=== PATIENT | female | born 1945 | race Caucasian/White ===

== ENCOUNTER 2016-09-09 10:04 | Day surgery (SDC) | payer MEDICARE, OTHER ==
[~2016-09-09 10:04] MED LIST: ASPI81 PO; GLUCTAB PO; LORT5TAB PO; Z.0.UNKNOWN
[2016-09-09] MEDS ORDERED: POVIDONE IODINE 5% (ANTISEPSIS KIT) 4 APPLICATIONS EACH NARE SCH (10:30)
[2016-09-09] MEDS ORDERED: CHLORHEXIDINE GLUCONATE 2 % 1 PACK (2 CLOTHS) TOPICAL SCH (10:30)
[2016-09-09] MEDS ORDERED: ceFAZolin 2 GM PREMIX 50 ML IV SCH (10:30)
[2016-09-09] MEDS ORDERED: VANCOMYCIN 1000 MG/NS 250 ML IV SCH ×2 (10:45)
[2016-09-09] MEDS ORDERED: METF500T PO (10:49)
[2016-09-09] MEDS ORDERED: PRIL20CA9 PO (10:49)
[2016-09-09] MEDS ORDERED: CRANCAP2 PO (10:49)
[2016-09-09] MEDS ORDERED: PRED5TAB PO (10:49)
[2016-09-09] MEDS ORDERED: BIOT1CHW PO (10:49)
[2016-09-09] MEDS ORDERED: ASPI1TAB69 PO (10:49)
[2016-09-09] MEDS ORDERED: CALC1TAB12 PO (10:49)
[2016-09-09] MEDS ORDERED: CARV6.252 PO (10:49)
[2016-09-09] MEDS ORDERED: SIMV40TA PO (10:49)
[2016-09-09] MEDS ORDERED: IMIT50TA PO (10:49)
[2016-09-09] MEDS ORDERED: PARO20TA2 PO (10:49)
[2016-09-09] MEDS ORDERED: ESTE500T4 PO (10:49)
[2016-09-09] MEDS ORDERED: LEVO25TA4 PO (10:49)
[2016-09-09] MEDS ORDERED: MUPIROCIN 2% OINT 1 APPLIC/GM SYR NASAL SCH (11:00)
[2016-09-09] MEDS ORDERED: MIDAZOLAM HCL 5 MG/5 ML VIAL ONE (12:13)
--- NOTE | 2016-09-09 12:51 | MA ---
cc: BRIDGETTE GARY MD, BETH A. MD DATE 09/09/2016 PROCEDURE PERFORMED Loop recorder insertion PREPROCEDURE DIAGNOSIS Syncope POSTPROCEDURE DIAGNOSIS Successful loop recorder insertion. PROCEDURES PERFORMED 1. 15 minutes moderate sedation. 2. Loop recorder insertion. DESCRIPTION OF PROCEDURE The patient was brought to the DOC unit in the postabsorptive state. After informed consent was obtained, 4 mg of Versed and 15 mcg of fentanyl were given for IV moderate sedation. Next, a Rysto LINQ loop recorder was inserted subcutaneously first initially under the left breast, but this position was revised to between the breasts due to a better R-wave. The patient tolerated the procedure well without any apparent complications. The initial R-wave in the final position was 0.28 mV. Tachybrady pause in atrial fibrillation detection was enabled. The serial number was [id number]. MD LATASHA Hassan/RUDDY /12:41 PM /12:47 PM
== END 2016-09-09 15:45 | disposition home or self-care (01) ==
LOC: HDOC 10:04 → HDIC 10:05 → HDOC 15:45
PROVIDERS: ATTEND Nuclear Medicine Nuclear Cardiology
DX: R55 Syncope and collapse (principal)
CPT/HCPCS: 33282; C1764; J2250; J3010; J3370; J7050

== ENCOUNTER 2016-12-05 06:18 | Day surgery (SDC) | payer MEDICARE, OTHER ==
[~2016-12-05] VITALS: Ht 154.9 cm; Wt 91.0 kg
[~2016-12-05 06:18] MED LIST changes: +ASPI1TAB69 PO; -ASPI81 PO; +BIOT1CHW PO; +CALC1TAB12 PO; +CARV6.252 PO; +CRANCAP2 PO; +ESTE500T4 PO; -GLUCTAB PO; +IMIT50TA PO; +LEVO25TA4 PO; -LORT5TAB PO; +METF500T PO; +PARO20TA2 PO; +PRED5TAB PO; +PRIL20CA9 PO; +SIMV40TA PO; -Z.0.UNKNOWN
[2016-12-05 06:52] VITALS: BP 165/111; PULSE 58; RESP 16; TEMP 97.9; O2SAT 94
[2016-12-05] MEDS ORDERED: NS 1000P @30 MLS/HR (KVO) IV SCH (07:00)
[2016-12-05] MEDS ORDERED: PRIL20TA2 PO (07:03)
[2016-12-05] MEDS ORDERED: ASPI81TA11 PO (07:03)
[2016-12-05 07:10] LABS: AUTOMATED NEUTROPHIL # 5.7 TH/MM3 (1.8-7.7); BASOPHIL % 0.2 % (0.0-2.0); EOSINOPHIL # 0.2 TH/MM3 (0-0.4); EOSINOPHIL % 2.1 % (0.0-4.0); HEMATOCRIT 41.6 % (35.0-46.0); HEMO FLAGS DIFF FINAL; LYMPH % 31.7 % (9.0-44.0); LYMPHOCYTE # 3.2 TH/MM3 (1.0-4.8); MEAN CELL VOLUME 89.6 FL (80.0-100.0); MEAN CORPUSCULAR HEMOGLOBIN 30.1 PG (27.0-34.0); MEAN CORPUSCULAR HGB CONC 33.6 % (32.0-36.0); PLATELET COUNT 265 TH/MM3 (150-450); RED BLOOD COUNT 4.64 MIL/MM3 (4.00-5.30); RED CELL DISTRIBUTION WIDTH 13.9 % (11.6-17.2); WHITE BLOOD COUNT 10.1 TH/MM3 (4.0-11.0)
[2016-12-05 07:26] LABS: POTASSIUM 4.4 MEQ/L (3.5-5.1)
[2016-12-05 08:01] LABS: INTERNATIONAL NORMALIZED RATIO 0.9 RATIO
[2016-12-05 08:08] LABS: PROTHROMBIN TIME - PATIENT 10.2 SEC (9.8-11.6)
[2016-12-05] MEDS ORDERED: HEPARIN-NS/PF INJ 500 ML ONE ×2 (09:11→10:10)
[2016-12-05] MEDS ORDERED: VERAPAMIL HCL 5 MG/2 ML VIAL ONE (09:12)
[2016-12-05] MEDS ORDERED: HEPARIN SODIUM - IV 10,000 UNITS/10 ML VIAL ONE (09:12)
[2016-12-05] MEDS ORDERED: NITROGLYCERIN INJ 5 ML ONE (09:12)
[2016-12-05] MEDS ORDERED: MIDAZOLAM HCL 2 MG/2 ML VIAL ONE (09:13)
[2016-12-05] MEDS ORDERED: ADENOSINE STRESS TEST INJ 90 MG/30 ML VIAL ONE (10:16)
--- NOTE | 2016-12-05 10:52 | CATHPROC ---
[employer] HIS Report Study Information Study Number Admission Scheduled Start Study Start [id number] Dec 05 2016 6:18AM 12/05/2016 Dec 05 2016 9:06AM Study Type [place] Service Left/Possible PCI Cardiac Catheterization Admit Source Facility Department Other [facility] - Technical Sales Director Physician and Clinical Staff Initial Andry Bhagat Clinical Phlebotomist Teresa Raines,FATUMA Other cathlab, cathlab Recorder Aden Perez RCIS(BS) Scrub Janice Meier,APPLICATION INFRASTRUCTURE ENGINEER TECH2 Procedures Performed Procedure Location (Site) Vessel Name Coronary Angiograms LCA Left Coronary Coronary Angiograms RCA Right Coronary Coronary Angiograms Radial (right) Radial Art. L Heart Cath Wire insertion Fem Art (right) Femoral Art Equipment Time Hand Shoes Sewer Description Size Mfg Part Number Used/Scraped TRANSDUCER, TREDDIE [id number] 09:08 MENDEZ PATEL * Used W/MARTÍN *[id number]-502-10.0- INTRODUCER SET, 09:46 [employer] FR 5 SC-NT-U-SST Used MICROPUNCTURE, STIFFENED *[id number] 534-576T *[id number] 534-518T *[id number] 534-520T *[id number] 534-521T *[id number] WIRE, HYDROSTEER 260CM [id number] 09:46 [employer]IG[employer] 260CM Used ANGLED GLIDE *[id number] 09:08 [employer] PACK, CCL CUSTOM * Used *[id number] 09:08 [employer] SUPPORT, ARTERIAL ADULT [id number] Used [id number] 10:18 [employer]/AVE EBU 3.5 Z2 GUIDE CATHETER FR 6 Used *[id number] BAND, RADIAL COMPRESSION TR [id number] 10:36 [employer] MEDICAL 24CM Used SHORT 24 *[id number] 10:21 [employer] PACK, ANGIOPLASTY * [id number] Used [id number] 10:17 [employer] MEDICAL SHEATH, FR6.5 PRELUDE 11CM FR 6.5 038ACT Used *[id number] 09:08 [employer] WIRE, EXCHANGE 260CM 3MMJ 260CM Used *[id number] 09:08 NAMIC MANIFOLD, 4 PORT * Used *[id number] 09:08 [employer] OMNIPAQUE, 350 MG, 150ML 150ML [id number] Used [id number] 09:08 [facility] BLANKET,WARM AIR CCL * Used *[id number] 09:46 [employer] MED[employer] SHEATH, FR5 TERUMO (10CM) FR 5 Used *[id number] SHEATH, FR6 TRANSRADIAL RM*[id number] 09:08 [employer] MEDICAL FR 6 Used SLENDER 10CM *[id number] 10:22 [employer] PRIME WIRE, VERRATA 185CM 185CM [id number] *[id number] Used Equipment Model, Serial, Lot Number and Expiration Data Description Model Number Serial Number Lot Number Expiration Date INTRODUCER SET, [id number] 10-26-2019 MICROPUNCTURE, STIFFENED History: Current Medications Medication Dosage/Unit Route Frequency Last Date/Time Taken ASA Beta Sophy History: Allergies Allergy Reaction Codeine NAUSE Penicillin History: Risk Factors Family History of Dyslipidemia Previous ID Previous Heart Failure Premature CAD Yes Yes No No Prior Valve Prior PCI Prior CABG Surgery No No No Cerebrovascular Peripheral Artery Chronic Lung On Dialysis Diabetes Diabetes Therapy Disease Disease Disease No No No No Yes Oral History: Stress Tests Stress or Imaging Studies Performed Yes Standard Exercise Stress Test No Stress Echo No Stress Test SPECT Stress Test SPECT Result Yes Negative Stress Test CMR No Cardiac CTA Coronary Calcium Score No No History: Other Disease Selection Items HTN History: Other Current Smoker No Labs Hgb (g/dl) Hct (%) WBC (l/cumm) Platelets (thousands) 11.60-17.00 35.00-51.00 4.00-11.00 150.00-450.00 14.0 41 4.6 265 Glucose (mg/dl) BUN (mg/dl) Creatinine (mg/dl) BUN:Creatinine (1:x) 74.00-106.00 7.00-18.00 0.50-1.30 10.00-20.00 222 17 0.8 21.3 Na (meq/l) K (meq/l) 136.00-145.00 3.50-5.10 140 4.4 INR (PTT:PT) 0.90-1.10 0.9 CPK-MB (ng/ML) 0.50-3.60 Not Drawn Medication Medication Total Dose (Bolus/Oral) Medication Total Dosage/Unit 1% XYLOCAINE 23 mL FENTANYL 25 mcg HEPARIN 5200 units RADIAL COCKTAIL 5 mL (Bolus) VERSED 0.5 mg Medications (Bolus/Oral) Medication Time Given Dosage/Unit Administered By Reason VERSED 12/05/2016 9:35:22 AM 0.5 mg Teresa Raines Patient arrived on 0.5 mg VERSED given by Teresa Raines, FATUMA in Left Antecubital via Peripheral IV. Ordered by Andry Umaña. FENTANYL 12/05/2016 9:37:02 AM 25 mcg Teresa Raines Patient arrived on 25 mcg FENTANYL given by Teresa Raines, FATUMA in Left Antecubital via Peripheral I V. Ordered by Andry Umaña. 1% XYLOCAINE 12/05/2016 9:38:32 AM 3 mL Andry Umaña 3 mL 1% XYLOCAINE given in lab by Andry Umaña in Right Radial via Subcutaneous. Ntg 200mcg Verapamil 2.5mg Heparin RADIAL COCKTAIL 12/05/2016 9:41:49 AM 5 mL (Bolus) Andry Umaña 2500U 5 mL (Bolus) RADIAL COCKTAIL given in lab by Andry Umaña in Right Radial via Radial. Using [Shama ution Name]. Reason: Ntg 200mcg Verapamil 2.5mg Heparin 3500U. 1% XYLOCAINE 12/05/2016 9:46:28 AM 20 mL Andry Umaña 20 mL 1% XYLOCAINE given in lab by Andry Umaña in Right Groin via Subcutaneous. HEPARIN 12/05/2016 10:19:15 AM 5200 units Teresa Raines 5200 units HEPARIN given in lab by Teresa Raines, FATUMA in Left Antecubital via Peripheral IV. Ordere d by Andry Umaña. Medication (Drip) Medication Time Given Dosage/Unit Concentration/Unit Diluent (ml) Solutio n IV Solutions 12/05/2016 9:06:37 AM 0 mL (IV) 500 NaCl .9 Patient arrived on IV Solutions given by alcideslabelvis in Left Antecubital via Peripheral IV. Pump /Drip Flow = 20 ml/hr using NaCl .9. Initial Case Assessment Cardiovascular HR Rhythm NIBP Chest Pain 69 sinus 209/174 0 Edema Present Skin color Skin None Normal Warm Dry Circulatory - Right Pulses Dorsalis Pedis Femoral Radial 1 1 1 Scale (0,1,2,3,4,d) Circulatory - Left Pulses Dorsalis Pedis Femoral Radial 1 1 Scale (0,1,2,3,4,d) Neurological State Oriented to time-place- Alert Moves all extremities person Respiration - General Respiration Rate SpO2 (%) (B/min) 15 98 Final Case Assessment Cardiovascular HR Rhythm NIBP Chest Pain 74 sinus 143/79 0 Edema Present Skin color Skin None Normal Warm Dry Circulatory - Right Pulses Dorsalis Pedis Femoral Radial 1 1 1 Scale (0,1,2,3,4,d) Circulatory - Left Pulses Dorsalis Pedis Femoral Radial 1 1 Scale (0,1,2,3,4,d) Neurological State Oriented to time-place- Alert Moves all extremities person Respiration - General Respiration Rate SpO2 (%) (B/min) 15 98 Chronological Log Time Study Chronological Log 9:06:24 Patient arrived via Bed. 9:06:24 Patient Name, D.O.B, / Armband Verified By R.N. 9:06:25 Consent signed by the physician and the patient and verified by the Technical Sales Director staff. 9:06:26 Pre-op and post- op instructions given; patient acknowledges understanding of instructions. 9:06:26 Verbal Stimulation=2 Physical Stimulation=2 Airway=2 Respiration=2 TOTAL=8. (0=absent, 1=li mited, 2=present) 9:06:27 Presedation assessment performed by Technical Sales Director RN. 9:06:28 Allens test performed on the right radial and ulnar artery. POSITIVE. 9:06:32 Patient has been NPO for More than 6Hrs. 9:06:33 Skin Breakdown- none per patient 9:06:34 Patient Warmer Placed on the Table. 9:06:35 Qi Prominences Protected 9:06:36 A # 20 IV was noted in the Antecubital (left). Grade = 0 Patient arrived on IV Solutions given by cathlab, cathlab in Left Antecubital via Peripheral IV . Pump/Drip Flow = 20 9:06:37 ml/hr using NaCl .9. 9:06:38 History and physical on the chart or being dictated. Vitals capture started with the following parameters, Patient=Adult, Interval=5 min, Initial Pr dqtitz=809 mmHg, 9:10:17 Deflation Rate=5 mmHg 9:11:31 HR=74 bpm, ZUZX=799/174 mmhg, SpO2=96.0 %, Resp=16 B/min, Pain=0, Antonio=10, Resendiz=2 Assessment: Initial Case, HR=69 BPM, Rhythm=sinus, NJGB=541/174 mmhg, Chest Pain=0, Edema=None, Color=Normal, Skin = Warm, Dry Right Pulses: Rl Ped=1, Femoral=1, Radial=1 9:12:12 Left Pulses: Rl Ped=1, Femoral=1 Neurological: State=Alert, Ox3, SHOEMAKER Respiration: Resp=15 B/min, SpO2=98 % 9:16:02 HR=76 bpm, ITJK=143/100 mmhg, SpO2=98.0 %, Resp=15 B/min, Pain=0, Antonio=10, Resendiz=2 9:17:21 Right Radial and groin(s) prepped with 2% chlorhexidine, and with a 3 min. waiting time. 9:19:34 Reference ECG taken 9:20:55 HR=77 bpm, GCMM=237/104 mmhg, SpO2=98.0 %, Resp=12 B/min, Pain=0, Antonio=10, Resendiz=2 9:23:02 MD paged 9:24:02 MD responded 9:25:40 Pressure channel 1 zeroed. 9:25:54 HR=87 bpm, EBNF=502/91 mmhg, SpO2=97.0 %, Resp=13 B/min, Pain=0, Antonio=10, Ersendiz=2 9:30:57 HR=76 bpm, CCNC=436/109 mmhg, SpO2=98.0 %, Resp=11 B/min, Pain=0, Antonio=10, Resendiz=2 9:31:58 MD arrived. 9:32:04 Contrast Scanned 9:32:05 Immediate Presedation assesment performed by physician. Patient arrived on 0.5 mg VERSED given by Teresa Raines RN in Left Antecubital via Periphera l IV. Ordered by 9:35:22 Andry Umaña. 9:35:58 HR=90 bpm, OAYO=422/90 mmhg, SpO2=97.0 %, Resp=18 B/min, Pain=0, Antonio=10, Resendiz=2 Patient arrived on 25 mcg FENTANYL given by Teresa Raines RN in Left Antecubital via Periphe ral IV. Ordered by 9:37:02 Andry Umaña. Time Out. Correct patient, correct procedure,correct physician, ,power injector not loaded with contrast with surgical 9:38:16 team present. Time Out Concurred by , individual staff in procedure 9:38: Case Start 9:: Verbal Stimulation=2 Physical Stimulation=2 Airway=2 Respiration=2 TOTAL=8. (0=absent, 1=hayes ited, 2=present) 9:38:32 3 mL 1% XYLOCAINE given in lab by Andry Umaña in Right Radial via Subcutaneous. 9:41:01 HR=82 bpm, KXCF=539/81 mmhg, SpO2=95.0 %, Resp=15 B/min, Pain=0, Antonio=10, Resendiz=2 9:41:25 Access site was Right Radial Artery. A SHEATH, FR6 TRANSRADIAL SLENDER 10CM FR 6 was advanced into the Radial (right) using the Huu dalila 9:41:41 technique. 5 mL (Bolus) RADIAL COCKTAIL given in lab by Andry Umaña in Right Radial via Radial. Using [Solution Name]. 9:41:49 Reason: Ntg 200mcg Verapamil 2.5mg Heparin 3500U. A JR 4.0 INFINITI CATHETER FR 5 was advanced over a wire. OMNIPAQUE, 350 MG, 150ML 150ML was use d for 9:42:07 injections. 9:42:58 Wire removed 9:43:50 The Radial (right) was injected and visualized at various angles. OMNIPAQUE, 350 MG, 150ML 1 50ML used. 9:44:36 Catheter was removed 9:44:40 Unable to advance catheter via R. RADIAL ART. ATTEMPTING RFA. 9:46:04 HR=84 bpm, RVZM=466/44 mmhg, SpO2=90.0 %, Resp=13 B/min, Pain=0, Antonio=10, Resendiz=2 9:46:28 20 mL 1% XYLOCAINE given in lab by Andry Umaña in Right Groin via Subcutaneous. 9:49:51 Access site was Right Femoral Artery. A INTRODUCER SET, MICROPUNCTURE, STIFFENED FR 5 was advanced into the Fem Art (right) using the 9:49:56 Percutaneous technique. A SHEATH, FR5 TERUMO (10CM) FR 5 was exchanged in the Fem Art (right). This was necessary in ord er to 9:50:00 accomodate a larger catheter. 9:51:19 An injection in the Fem Art (right) was made through the SHEATH, FR5 TERUMO (10CM) FR 5. 9:51:24 HR=84 bpm, MUKV=936/98 mmhg, SpO2=95.0 %, Resp=13 B/min, Pain=0, Antonio=10, Resendiz=2 A JR 4.0 INFINITI CATHETER FR 5 was advanced over a wire. OMNIPAQUE, 350 MG, 150ML 150ML was us ed for 9:52:17 injections. Recorded Pressure: LV, HR=82, Condition=Condition 1 9:54:19 (Left Ventricle) LV 135/2/11 Recorded Pressure: LV, Ao, HR=80, Condition=Condition 1 9:54:37 (Left Ventricle) LV 133/-4/7, (Aorta) Ao 135/81/105 9:55:52 HR=80 bpm, XGYO=216/92 mmhg, SpO2=97 %, Resp=8 B/min, Pain=0, Antonio=10, Resendiz=2 10:00:57 HR=81 bpm, GNFB=891/91 mmhg, SpO2=97.0 %, Resp=8 B/min, Pain=0, Antonio=10, Resendiz=2 After removing the current catheter a 3DRC INFINITI CATHETER FR 5 was advanced over a WIRE, EXC HANGE 260CM 10:02:29 3MMJ 260CM. 10:04:27 The RCA was injected and visualized at various angles. OMNIPAQUE, 350 MG, 150ML 150ML used . 10:05:54 HR=77 bpm, BMXC=871/85 mmhg, SpO2=97.0 %, Resp=11 B/min, Pain=0, Antonio=10, Resendiz=2 After removing the current catheter a JL 3.5 INFINITI CATHETER FR 5 was advanced over a WIRE, E XCHANGE 260CM 10:06:06 3MMJ 260CM. After removing the current catheter a JL 4.0 INFINITI CATHETER FR 5 was advanced over a WIRE, E XCHANGE 260CM 10:07:39 3MMJ 260CM. 10:10:05 The LCA was injected and visualized at various angles. OMNIPAQUE, 350 MG, 150ML 150ML used . 10:10:55 HR=76 bpm, EWQL=203/90 mmhg, SpO2=98.0 %, Resp=12 B/min, Pain=0, Antonio=10, Resendiz=2 Recorded Pressure: Ao, HR=76, Condition=Condition 1 10:11:30 (Aorta) Ao 143/83/110 10:16:00 HR=76 bpm, MRZJ=171/62 mmhg, SpO2=96.0 %, Resp=12 B/min, Pain=0, Antonio=10, Resendiz=2 10:16:19 Catheter was removed A SHEATH, FR6.5 PRELUDE 11CM FR 6.5 was exchanged in the Fem Art (right). This was necessary in order to 10:18:02 accomodate a larger catheter. 5200 units HEPARIN given in lab by Teresa Raines RN in Left Antecubital via Peripheral IV. Ordered by Leeroy, 10:19:15 Andry. 10:20:53 HR=77 bpm, DTTK=789/92 mmhg, SpO2=98 %, Resp=14 B/min, Pain=0, Antonio=10, Resendiz=2 10:25:52 Pressure channel 1 zeroed. 10:25:54 HR=75 bpm, VKXY=897/90 mmhg, SpO2=98 %, Resp=13 B/min, Pain=0, Antonio=10, Resendiz=2 10:27:08 A PRIME WIRE, VERRATA 185CM 185CM was inserted via Fem Art (right). 10:28:47 Interventional wire has crossed the lesion 10:29:50 Flow Wire was was placed in the RAMUS. The FFR measures ~FFR~ percent. The IFR measures 98 Percent. 10:31:36 HR=73 bpm, LTSF=527/79 mmhg, SpO2=96.0 %, Resp=16 B/min, Pain=0, Antonio=10, Resendiz=2 10:31:56 The wire was removed. 10:32:05 The LCA was injected and visualized at various angles. OMNIPAQUE, 350 MG, 150ML 150ML used . 10:32:10 Catheter was removed 10:33:34 Activated Clotting Time Drawn Assessment: Final Case, HR=74 BPM, Rhythm=sinus, PWXI=605/79 mmhg, Chest Pain=0, Edema=None, Color=Normal, Skin = Warm, Dry Right Pulses: Rl Ped=1, Femoral=1, Radial=1 10:33:44 Left Pulses: Rl Ped=1, Femoral=1 Neurological: State=Alert, Ox3, SHOEMAKER Respiration: Resp=15 B/min, SpO2=98 % Radial Compression Device Used. 11 mLs of air placed in BAND, RADIAL COMPRESSION TR SHORT 24 24 CM. Affected 10:34:04 hand 96 % O2 saturation. 10:35:54 HR=71 bpm, MAAH=256/91 mmhg, SpO2=98.0 %, Resp=15 B/min, Pain=0, Antonio=10, Resendiz=2 10:37:19 Case End 10:37:20 In the Fem Art (right) the SHEATH, FR6.5 PRELUDE 11CM FR 6.[address] by Janice Meier, APPLICATION INFRASTRUCTURE ENGINEER TECH2. 10:37:31 Catheter(s) removed without difficulty 10:37:33 Sheath(s) left in place, will be removed in Holding Area 10:37:34 No case complications noted. 10:37:35 Cine recording checked. 10:37:37 Bedside Report will be given. 10:37:38 Contrast Scanned 10:37:40 Verbal Stimulation=2 Physical Stimulation=2 Airway=2 Respiration=2 TOTAL=8. (0=absent, 1=l imited, 2=present) 10:37:47 A Left Heart Cath was performed. 10:40:02 ACT (Normal Range 90-180) = 314 10:41:02 Sterile dressing applied to site 10:41:28 HR=72 bpm, YAEP=770/101 mmhg, SpO2=97 %, Resp=10 B/min, Pain=0, Antonio=10, Resendiz=2 10:45:14 Patient moved to stretcher 10:45:25 Vitals capture stopped. End Study - Contrast Media Used In Study Contrast Total Opened (mL) Total Used (mL) Total Wasted (mL) Omnipaque 60 60 0 End Study - Maximum Contrast Load Max Contrast Load (mL) 550.0 End Study - Radiation Exposure Fluoro Time (minutes) 13.2 End Study - Patient Disposition Complications Transferred To Interventional Outcome No Technical Sales Director Holding No attempt made
[2016-12-05] MEDS ORDERED: MISC INFORMATION XX ONE (11:00)
[2016-12-05] MEDS ORDERED: ONDANSETRON HCL 4 MG/2 ML VIAL IV PRN (11:00)
[2016-12-05] MEDS ORDERED: SODIUM CHLOR 0.9% 250 ML INJ 250 ML IV PRN (11:00)
[2016-12-05] MEDS ORDERED: ATROPINE SULFATE 1 MG/ML VIAL IV PRN (11:00)
[2016-12-05] MEDS ORDERED: SUMAtriptan SUCCINATE 50 MG TAB PO PRN (11:00)
[2016-12-05] MEDS ORDERED: METF500T PO (11:03)
--- NOTE | 2016-12-05 11:06 | HHI.DS ---
Discharge Summary Admission Date 12/05/16 Discharge Date: Dec 06, 2016 Admitting Diagnosis 1) NSVT (1) NSVT (nonsustained ventricular tachycardia) Diagnosis: Principal (2) CAD (coronary artery disease) Diagnosis: Principal Procedures [facility] (12/05/16) RCA with 30% disease. LCx with 20% disease. Ramus 50% (IFR 0.98) . LAD with mild disease until the distal portion which is overall small (1.5mm ) with diffuse disease. Medical management CBC/BMP: 12/05/16 0645 12/05/16 0645 Significant Findings Laboratory Tests Test 12/05/16 12/05/16 06:45 07:35 Monocytes (%) (Auto) 9.0 % (0.0-8.0) Estimat Glomerular Filtration 66 ML/MIN (>89) Rate Random Glucose 222 MG/DL (74-106) Activated Partial 23.0 SEC Thromboplast Time (24.3-30.1) Pt Condition on Discharge: Good Discharge Disposition: Discharge Home Discharge Instructions DIET: Follow Instructions for: Heart Healthy Diet Andry Umaña DO Dec 05, 2016 11:06
[2016-12-05] MEDS ORDERED: hydrALAZINE HCL 20 MG/ML VIAL IV PUSH PRN (11:15)
[2016-12-05] MEDS ORDERED: IOHEXOL 350 MG/ML 100 ML BTL (for Cath Lab) OTHER ONE (15:19)
[2016-12-05] MEDS ORDERED: oxyCODONE/ACETAMINOPHEN 5 MG/325 MG TAB PO ONE (16:00)
[2016-12-05] MEDS ORDERED: fentaNYL CITRATE 250 MCG/5 ML AMP IV PUSH ONE (18:00)
[2016-12-05 19:00] VITALS: BP 140/81; PULSE 79; PULSE 86; RESP 18; TEMP 98.3; O2SAT 95
[2016-12-05 20:00] VITALS: PULSE 84
[2016-12-05 21:00] VITALS: PULSE 86
[2016-12-05] MEDS ORDERED: PRAVASTATIN SOD 80 MG TAB PO SCH (21:00)
[2016-12-05] MEDS: CARVEDILOL 6.25 MG TAB PO SCH (21:24)
[2016-12-05 22:00] VITALS: PULSE 84
[2016-12-05 23:00] VITALS: BP 134/86; PULSE 82; PULSE 84; RESP 20; TEMP 98.4; O2SAT 93
[2016-12-06] VITALS (12 sets, daily range): BP systolic 121–136; BP diastolic 86–99; PULSE 76–90; RESP 16–20; TEMP 98.4–98.6; O2SAT 93–94
[2016-12-06] MEDS ORDERED: LEVOTHYROXINE SODIUM 50 MCG TAB PO SCH (06:00)
[2016-12-06 06:57] LABS: AUTOMATED NEUTROPHIL # 3.6 TH/MM3 (1.8-7.7); BASOPHIL # 0.1 TH/MM3 (0-0.2); BASOPHIL % 1.5 % (0.0-2.0); EOSINOPHIL # 0.3 TH/MM3 (0-0.4); EOSINOPHIL % 3.5 % (0.0-4.0); HEMATOCRIT 39.5 % (35.0-46.0); HEMO FLAGS DIFF FINAL; LYMPH % 35.3 % (9.0-44.0); LYMPHOCYTE # 2.6 TH/MM3 (1.0-4.8); MEAN CORPUSCULAR HEMOGLOBIN 30.3 PG (27.0-34.0); MEAN CORPUSCULAR HGB CONC 34.1 % (32.0-36.0); MONO % 9.9 % (0.0-8.0); NEUT % 49.8 % (16.0-70.0); PLATELET COUNT 244 TH/MM3 (150-450); RED BLOOD COUNT 4.44 MIL/MM3 (4.00-5.30); RED CELL DISTRIBUTION WIDTH 13.7 % (11.6-17.2); WHITE BLOOD COUNT 7.3 TH/MM3 (4.0-11.0)
[2016-12-06 07:26] LABS: BICARBONATE 25.9 MEQ/L (21.0-32.0)
--- NOTE | 2016-12-06 08:36 | MA ---
cc: ANDRY SPIVEY DO DATE: 12/05/2016 PROCEDURE Left heart catheterization, coronary angiogram, IFR ramus, moderate sedation 60 minutes. PREPROCEDURE DIAGNOSIS Symptomatic nonsustained ventricular tachycardia. POSTPROCEDURE DIAGNOSIS Symptomatic nonsustained ventricular tachycardia, coronary artery disease. MEDICATIONS Versed 1 mg, Fentanyl 50 mcg, nitro 200 mcg, verapamil 2.5 mg, heparin 7700 units. CONTRAST USED 60 cc. FLUOROSCOPY TIME 13.2 minutes. SEDATION Moderate sedation, 60 minutes. PROCEDURAL SUMMARY Janice Gambino is a pleasant 71-year-old female who presented in the outpatient office after having nonsustained ventricular tachycardia of 18 beats on a loop monitor. During that she almost passed out. An echocardiogram was done in the office which showed a normal ejection fraction. She did have a normal nuclear scan in the office but as this showed extensive nonsustained VT on her loop monitor it was felt that significant coronary artery disease needed to be ruled out as a possible cause for her ventricular tachycardia. The risks, benefits and alternatives were explained to her and she consented as such. She was brought to the lab and prepped in the usual sterile fashion. The right radial artery was accessed using a modified Seldinger technique and placement of a 5/6 Frisian Slender sheath. This was easily aspirated and flushed. As the wire was advanced to the midforearm it started to show resistance. Angiogram of the right radial artery shows that we were in a recurrent right radial artery which was significantly small with multiple tortuosities. At this point the patient was having pain and it was felt that the right radial artery should be aborted. The right femoral artery was accessed using a modified Seldinger technique and placement of a 5-Frisian sheath. This was easily aspirated and flushed. A JR4 was advanced over a J-wire to the ascending aorta and across the aortic valve into the left ventricle for measurement of left ventricular end-diastolic pressure. The JR4 was then pulled back across the aortic valve showing no significant gradient of aortic stenosis. The JR4 was unable to be used for angiography of the right coronary artery so this was then exchanged for a 3-D RC catheter. The 3-D RC was used for selective angiography of the right coronary artery. The 3-D RC was then exchanged for a JL 3.5 which was unable to be used for angiography of the left coronary system so this was exchanged for a JL4. The JL4 was used for selective angiography of the left coronary system. As there was concern for an intermediate lesion in the proximal ramus and she had nonsustained VT, I felt that this needed to be further investigated. The patient was given additional heparin for an anticoagulant. An EBU guide catheter was then advanced to engage the left main. A Zamora wire was taken down to the distal portion of the ramus. IFR measurement was 0.98 showing non-physiologic stenosis of her ramus. The wire was removed and angiogram afterwards showed no disruption of coronary arteries. The EBU catheter was then removed over a J-wire. A radial band was placed over the arteriotomy site for hemostasis. Her femoral sheath was sewn in with a plan to remove once ACT levels were appropriate. The patient left the trestle mainternance laborer cardiovascularly stable. FINDINGS The left main was a normal size vessel with distal tapering of 20%. Adequate reflux. Trifurcates into an LAD, ramus and circumflex. The LAD is a relatively small vessel overall. 30% disease in the proximal portion. The midportion after the takeoff of this second diagonal has an 80-90% lesion but overall the vessel is at best 1.5 mm and extremely small distally. The second diagonal is a slightly larger vessel and seems to parallel the LAD as a dual LAD system. Overall the LAD gives off two major diagonals which are relatively small at 2 mm with no significant disease. The ramus is a 2 mm vessel with a 50% lesion in the proximal portion. IFR of this lesion was 0.98 showing no physiologic stenosis. The left circumflex is a small to moderate size vessel with 20% in the proximal portion. It gives off two small obtuse marginals with no significant disease. The RCA is a large vessel which is dominant in nature. There is a 30% lesion in the ostium with mild luminal irregularities throughout the mid and distal portion. Left ventricular end-diastolic pressure is 7. IMPRESSIONS 1. Symptomatic nonsustained ventricular tachycardia. 2. Coronary artery disease as above with mild to moderate disease in the RCA, circumflex and ramus with distal LAD disease in an extremely small vessel. RECOMMENDATIONS 1. Janice Gambino appears to have significant disease in her distal LAD, but this is an extremely small vessel at 1.5 mm and overall non-intervenable. She does have a dual LAD and the second diagonal takes the place of the more lateral LAD and supplies some of this territory. Overall she will continue medical management for her coronary artery disease. 2. She will be watched overnight with a plan for discharge in the morning. 3. She will continue her loop recorder for possible episodes of nonsustained ventricular tachycardia. 4. I did talk to Dr. Llamas about the case and I will have the patient follow-up with him on Monday in the office. 5. If her blood pressure continues to be elevated then we will increase her carvedilol as this can be used for an antihypertensive as well as trying to decrease her episodes of nonsustained ventricular tachycardia. 6. The patient will follow-up with Dr. Nava upon discharge. Thank you for allowing me to see Janice Gambino. If there are any questions, please do not hesitate to call. Andry Spivey DO VGP/BT /7:13 PM /8:19 AM
[2016-12-06] MEDS ORDERED: ASPIRIN EC 81 MG TABEC PO SCH (09:00)
[2016-12-06] MEDS ORDERED: PARoxetine HCL 20 MG TAB PO SCH (09:00)
[2016-12-06] MEDS ORDERED: PANTOPRAZOLE SOD 20 MG DELAYED RELEASE TAB PO SCH (09:00)
[2016-12-06] MEDS: CARVEDILOL 6.25 MG TAB PO SCH (09:06)
--- NOTE | 2016-12-06 10:51 | PD.CARD.PN ---
Subjective Subjective Remarks No chest pain, no shortness of breath Objective Medications Current Medications Medications (Trade) Dose Ordered Sig/Maribell Route Start Time Stop Time Status Last Admin (NS 1000 ml Inj) 1,000 ml @ 30 mls/hr Q24H IV 12/05/16 07:00 12/05/16 16:00 (Atropine Inj) 0.5 mg UNSCH PRN IV 12/05/16 11:00 (Zofran Inj) 4 mg Q4H PRN IV 12/05/16 11:00 (Ecotrin Ec) 81 mg DAILY PO 12/06/16 09:00 12/06/16 09:06 (Coreg) 6.25 mg BID PO 12/05/16 21:00 12/06/16 09:06 (Synthroid) 50 mcg DAILY@0600 PO 12/06/16 06:00 12/06/16 06:18 (Paxil) 20 mg DAILY PO 12/06/16 09:00 12/06/16 09:06 (Protonix) 20 mg DAILY PO 12/06/16 09:00 12/06/16 09:06 (Pravachol) 80 mg HS PO 12/05/16 21:00 12/05/16 21:24 (Apresoline Inj) 10 mg Q4H PRN IV PUSH 12/05/16 11:15 Vital Signs / I&O Vital Signs Date Time Temp Pulse Resp B/P Pulse Ox O2 Delivery O2 Flow Rate FiO2 12/06/16 10:00 88 12/06/16 09:00 85 12/06/16 08:00 80 12/06/16 07:00 98.4 81 20 133/99 94 12/06/16 07:00 79 12/06/16 06:00 82 12/06/16 05:00 82 12/06/16 04:00 84 12/06/16 03:00 98.4 82 16 136/86 94 12/06/16 03:00 76 12/06/16 02:00 78 12/06/16 01:00 80 12/06/16 00:00 80 12/05/16 23:00 82 12/05/16 23:00 98.4 84 20 134/86 93 12/05/16 22:00 84 12/05/16 21:00 86 12/05/16 20:00 84 12/05/16 19:00 86 12/05/16 19:00 98.3 79 18 140/81 95 12/05/16 11:00 98 Room Air I/O 12/05/16 12/05/16 12/05/16 12/06/16 12/06/16 12/06/16 07:00 15:00 23:00 07:00 15:00 23:00 Intake Total 600 ml Output Total 1100 ml Balance -500 ml Intake Oral 600 ml Output Urine Total 1100 ml Physical Exam GENERAL: NAD, AAOx3 SKIN: Warm and dry. HEAD: Atraumatic. Normocephalic. EYES: Pupils equal and round. No scleral icterus. No injection or drainage. ENT: No nasal bleeding or discharge. Mucous membranes pink and moist. NECK: Trachea midline. No JVD. CARDIOVASCULAR: Regular rate and rhythm. RESPIRATORY: No accessory muscle use. Clear to auscultation. Breath sounds equal bilaterally. GASTROINTESTINAL: Abdomen soft, non-tender, nondistended. Hepatic and splenic margins not palpable. MUSCULOSKELETAL: Extremities without clubbing, cyanosis, or edema. No obvious deformities. Right radial no hematoma, neurovascularly intact distally NEUROLOGICAL: Awake and alert. No obvious cranial nerve deficits. Motor grossly within normal limits. Five out of 5 muscle strength in the arms and legs. Normal speech. PSYCHIATRIC: Appropriate mood and affect; insight and judgment normal. Laboratory Laboratory Tests Test 12/06/16 06:03 White Blood Count 7.3 TH/MM3 Red Blood Count 4.44 MIL/MM3 Hemoglobin 13.5 GM/DL Hematocrit 39.5 % Mean Corpuscular Volume 89.0 FL Mean Corpuscular Hemoglobin 30.3 PG Mean Corpuscular Hemoglobin 34.1 % Concent Red Cell Distribution Width 13.7 % Platelet Count 244 TH/MM3 Mean Platelet Volume 9.1 FL Neutrophils (%) (Auto) 49.8 % Lymphocytes (%) (Auto) 35.3 % Monocytes (%) (Auto) 9.9 % Eosinophils (%) (Auto) 3.5 % Basophils (%) (Auto) 1.5 % Neutrophils # (Auto) 3.6 TH/MM3 Lymphocytes # (Auto) 2.6 TH/MM3 Monocytes # (Auto) 0.7 TH/MM3 Eosinophils # (Auto) 0.3 TH/MM3 Basophils # (Auto) 0.1 TH/MM3 CBC Comment DIFF FINAL Differential Comment Sodium Level 139 MEQ/L Potassium Level 4.0 MEQ/L Chloride Level 103 MEQ/L Carbon Dioxide Level 25.9 MEQ/L Anion Gap 10 MEQ/L Blood Urea Nitrogen 15 MG/DL Creatinine 0.93 MG/DL Estimat Glomerular Filtration 59 ML/MIN Rate Random Glucose 234 MG/DL Calcium Level 8.7 MG/DL Assessment and Plan Problem List: (1) NSVT (nonsustained ventricular tachycardia) (2) CAD (coronary artery disease) Assessment and Plan 1) Plan discharge today 2) Office will call this afternoon to her to set up with Dr. Llamas tomorrow 3) Discussed no driving as concern for NSVT with symptoms Andry Umaña DO Dec 06, 2016 10:51
--- NOTE | 2016-12-06 11:53 | EKG ---
Date Performed: 12/05/2016 Time Performed: 07:04:24 PTAGE: 71 years EKG: Sinus rhythm with PAC(s). Left axis deviation RBBB with left anterior fascicular block Possible anterior infarct - age undetermined Abnormal ECG NO PREVIOUS TRACING DOCTOR: Issa Booth Interpretating Date/Time 12/06/2016 11:49:08
== END 2016-12-06 16:52 | disposition home or self-care (01) ==
LOC: HDIC 06:18 → HDOC 06:18 → HCIN 18:42 → HDOC 12-06 16:52
PROVIDERS: ATTEND Nuclear Medicine Nuclear Cardiology
DX: I47.2 Ventricular tachycardia (principal); I25.10 Atherosclerotic heart disease of native coronary artery without angina pectoris; I11.9 Hypertensive heart disease without heart failure; E11.9 Type 2 diabetes mellitus without complications; E78.5 Hyperlipidemia, unspecified; R07.9 Chest pain, unspecified; Z01.818 Encounter for other preprocedural examination; Z01.810 Encounter for preprocedural cardiovascular examination
CPT/HCPCS: 80048; 85002; 85025; 85610; 85730; 93005; 93454; 93571; C1769; C1887; C1893; J0153; J1644; J2250; J3010; J7030; Q9967

== ENCOUNTER 2016-12-14 11:54 | Day surgery (SDC) | payer MEDICARE, OTHER ==
[~2016-12-14] VITALS: Ht 154.9 cm; Wt 104.3 kg
[~2016-12-14 11:54] MED LIST changes: -ASPI1TAB69 PO; +ASPI81TA11 PO; -ESTE500T4 PO; -PRIL20CA9 PO; +PRIL20TA2 PO
[2016-12-14] MEDS ORDERED: VANCOMYCIN 1000 MG/NS 250 ML IV SCH ×2 (13:00)
[2016-12-14] MEDS ORDERED: MUPIROCIN 2% OINT 1 APPLIC/GM SYR NASAL SCH (13:00)
[2016-12-14] MEDS ORDERED: INSULIN HUMAN REGULAR 1,000 UNITS/10 ML VIAL SQ PRN (13:00)
[2016-12-14] MEDS ORDERED: CHLORHEXIDINE GLUCONATE 2 % 1 PACK (2 CLOTHS) TOPICAL PRN (13:00)
[2016-12-14] MEDS ORDERED: SODIUM CHLORID 0.9% 500 ML IV PRN (13:00)
[2016-12-14] MEDS ORDERED: POVIDONE IODINE 5% (ANTISEPSIS KIT) 4 APPLICATIONS EACH NARE SCH (13:00)
[2016-12-14] MEDS ORDERED: LORazepam 1 MG TAB SL SCH (13:00)
[2016-12-14] MEDS ORDERED: LACTATED RINGER'S 1000 ML IV PRN (13:00)
[2016-12-14] MEDS ORDERED: NS 1000 ML IV SCH (13:00)
[2016-12-14] MEDS ORDERED: POVIDONE IODINE 5% (ANTISEPSIS KIT) 4 APPLICATIONS EACH NARE PRN (13:00)
[2016-12-14] MEDS ORDERED: CHLORHEXIDINE GLUCONATE 2 % 1 PACK (2 CLOTHS) TOPICAL SCH (13:00)
[2016-12-14] MEDS ORDERED: METOPROLOL TARTRATE 25 MG TAB PO PRN (13:00)
[2016-12-14 13:10] VITALS: BP 152/106; PULSE 78; RESP 18; TEMP 98.5; O2SAT 95
[2016-12-14 14:00] LABS: AUTOMATED NEUTROPHIL # 6.6 TH/MM3 (1.8-7.7); BASOPHIL # 0.1 TH/MM3 (0-0.2); BASOPHIL % 1.3 % (0.0-2.0); EOSINOPHIL # 0.2 TH/MM3 (0-0.4); EOSINOPHIL % 1.7 % (0.0-4.0); HEMATOCRIT 41.3 % (35.0-46.0); HEMO FLAGS DIFF FINAL; LYMPH % 17.5 % (9.0-44.0); LYMPHOCYTE # 1.6 TH/MM3 (1.0-4.8); MEAN CELL VOLUME 90.2 FL (80.0-100.0); MEAN CORPUSCULAR HEMOGLOBIN 30.3 PG (27.0-34.0); MEAN CORPUSCULAR HGB CONC 33.6 % (32.0-36.0); MONO % 5.3 % (0.0-8.0); NEUT % 74.2 % (16.0-70.0); PLATELET COUNT 270 TH/MM3 (150-450); RED BLOOD COUNT 4.58 MIL/MM3 (4.00-5.30); RED CELL DISTRIBUTION WIDTH 14.1 % (11.6-17.2); WHITE BLOOD COUNT 8.9 TH/MM3 (4.0-11.0)
[2016-12-14 14:08] LABS: APTT (PATIENT) 23.2 SEC (24.3-30.1); INTERNATIONAL NORMALIZED RATIO 0.9 RATIO
[2016-12-14 14:50] LABS: BICARBONATE 26.8 MEQ/L (21.0-32.0); POTASSIUM 4.6 MEQ/L (3.5-5.1)
[2016-12-14] MEDS ORDERED: HEPARIN-NS/PF INJ 500 ML ONE (15:12)
[2016-12-14] MEDS ORDERED: MIDAZOLAM HCL 2 MG/2 ML VIAL ONE (15:20)
[2016-12-14] MEDS ORDERED: ISOPROTERENOL HCL 1 MG/5 ML AMP ONE (15:20)
[2016-12-14] MEDS ORDERED: ONDANSETRON HCL 4 MG/2 ML VIAL IV PUSH ONE (15:38)
[2016-12-14] MEDS ORDERED: PROPOFOL 200 MG/20 ML AMP IV ONE (15:38)
--- NOTE | 2016-12-14 16:13 | CATHPROC ---
Ep[facility] HIS Report Study Information Study Number Scheduled Start Study Start [id number] 12/14/2016 Dec 14 2016 2:59PM Referring Institution Admit Source Facility Department 1 Other [facility] [address] - Enlisted Aircrew/Aerial Observer/Gunner Physician and Clinical Staff Initial [facility] Medical Doctor Md/Medical Director Janice Meier,SCRUMMASTER TECH2 Medical Doctor Md/Medical Director Roman Piper,RT(R) Other Anesthesia, SCHOOL BUSINESS MANAGER Recorder Binta Michel,RN Scrub Indu Nam,RT(R) TECH2 Equipment Time Adjunct Lecturer Description Size Mfg Part Number Used/Scraped [id number] 15:18 [employer] PACK, CCL CUSTOM * Used *[id number] 15:18 MEDLINE PACER BAER, LIMB * 2530 *[id number] Used [id number] 15:18 [employer],WARM AIR CCL * Used *[id number] 15:18 [employer] MED[employer] CATHETER, JSN, QUAD FR 5 Used *[id number] 15:18 [employer] MED[employer] CATHETER, JSN, QUAD FR 5 Used *[id number] 15:18 [employer] MEDICAL CATHETER, JSN, QUAD FR 5 Used *[id number] 15:18 [employer] MEDICAL CATHETER, JSN, QUAD FR 5 Used *[id number] 15:18 [employer] MED[employer] SHEATH, EPS, FR5 FAST CATH FR 5 Used *[id number] 15:18 [employer] SHEATH, EPS, FR5 FAST CATH FR 5 Used *[id number] 15:18 [employer] SHEATH, EPS, FR5 FAST CATH FR 5 Used *[id number] 15:18 [employer] SHEATH, EPS, FR6 FAST CATH FR 6 [id number] Used Labs Hgb (g/dl) Hct (%) WBC (l/cumm) Platelets (thousands) 11.60-17.00 35.00-51.00 4.00-11.00 150.00-450.00 13.9 41.3 8.9 270 Glucose (mg/dl) BUN (mg/dl) Creatinine (mg/dl) BUN:Creatinine (1:x) 74.00-106.00 7.00-18.00 0.50-1.30 10.00-20.00 285 18 0.9 20 Na (meq/l) K (meq/l) 136.00-145.00 3.50-5.10 136 4.6 INR (PTT:PT) 0.90-1.10 0.9 CPK-MB (ng/ML) 0.50-3.60 Not Drawn Medication Medication Total Dose (Bolus/Oral) Medication Total Dosage/Unit 1% XYLOCAINE 20 mL Medications (Bolus/Oral) Medication Time Given Dosage/Unit Administered By Reason 1% XYLOCAINE 12/14/2016 3:39:00 PM 20 mL Salas Llamas 20 mL 1% XYLOCAINE given in lab by Salas Llamas in Right Groin via Subcutaneous. Ordered by Morgan Llamas. Medication (Drip) Medication Time Given Dosage/Unit Concentration/Unit Diluent (ml) Solution ISUPREL 12/14/2016 3:56:55 PM 4 mcg/min 1 mg 250 NaCl .9 4 mcg/min ISUPREL given in lab by SANDI Youssef in Right Antecubital via Peripheral IV. Pump/Drip Flow = 60 ml/hr using NaCl .9 with a concentration of 1 mg in 250 ml. Ordered by Salas Llamas. VANCOMYCIN DRIP 12/14/2016 3:05:29 PM 1 g 1 g VANCOMYCIN DRIP given in lab by Salas Llamas in Right Antecubital via Peripheral IV. Initial Case Assessment Cardiovascular HR Rhythm NIBP Chest Pain 81 SR 133/84 0 Edema Present Skin color Skin None Normal Warm Dry Circulatory - Right Pulses Dorsalis Pedis 1 Scale (0,1,2,3,4,d) Circulatory - Left Pulses Dorsalis Pedis 1 Scale (0,1,2,3,4,d) Neurological State Oriented to time-place- Alert Moves all extremities person Respiration - General Respiration Rate SpO2 (%) (B/min) 18 98 Chronological Log Time Study Chronological Log 15:00:26 Patient arrived via Bed. 15:04:30 Patient Name, D.O.B, / Armband Verified By R.N. 15:04:31 Pre-op and post- op instructions given; patient acknowledges understanding of instructions. 15:04:32 Presedation assessment performed by Enlisted Aircrew/Aerial Observer/Gunner RN. 15:04:34 Patient has been NPO for More than 6Hrs. 15:04:34 Skin Breakdown- 15:04:35 Patient Warmer Placed on the Table. 15:04:36 Disposable Defibrillator Pads Placed On Patient. 15:04:36 Qi Prominences Protected 15:05:29 1 g VANCOMYCIN DRIP given in lab by Salas Llamas in Right Antecubital via Peripheral IV. 15:08:52 Anesthesia at bedside. Assumes care of patient. see records for all meds and vitals during case 15:18:25 History and physical on the chart or being dictated. Assessment: Initial Case, HR=81 BPM, Rhythm=SR, MPOU=404/84 mmhg, Chest Pain=0, Edema=None, Col or=Normal, Skin = Warm, Dry Right Pulses: Rl Ped=1 15:18:26 Left Pulses: Rl Ped=1 Neurological: State=Alert, Ox3, SHOEMAKER Respiration: Resp=18 B/min, SpO2=98 % 15:19:04 Table restraints applied according to hospital policy 15:19:05 Bilateral groins prepped with 2% chlorhexidine, and with a 3 min. waiting time. 15:36:45 Reference ECG taken Time Out. Correct patient, procedure, procedure equipment, site and side verified with physicia n present. Time 15:38:37 concurred by MD, individual staff and SCHOOL BUSINESS MANAGER. Time Out #2 - Consents verified, patient in correct position, all results are labled and displa yed, safety precautions 15:38:39 taken, antibiotics administered. Time out concurred by MD, individual staff and SCHOOL BUSINESS MANAGER in procedu re 15:38:51 Case Start 15:39:00 20 mL 1% XYLOCAINE given in lab by Salas Llamas in Right Groin via Subcutaneous. Ordered b y Salas Llamas. 15:39:15 Vascular access was obtained in the Fem Vein (right). 15:39:23 Vascular access was obtained in the Fem Vein (right). 15:39:25 Vascular access was obtained in the Fem Vein (right). 15:39:32 Vascular access was obtained in the Fem Vein (right). 15:39:33 A SHEATH, EPS, FR6 FAST CATH FR 6 was advanced into the Fem Vein (right) using the Modified Seldinger technique. 15:39:45 A SHEATH, EPS, FR5 FAST CATH FR 5 was advanced into the Fem Vein (right) using the Modified Seldinger technique. 15:40:01 A SHEATH, EPS, FR5 FAST CATH FR 5 was advanced into the Fem Vein (right) using the Modified Seldinger technique. 15:40:04 A SHEATH, EPS, FR5 FAST CATH FR 5 was advanced into the Fem Vein (right) using the Modified Seldinger technique. A CATHETER, JSN, QUAD FR 5 was advanced vis Fem Vein (right) and placed in the CS. Placement wa s visually 15:40:45 confirmed under fluoroscopy. A CATHETER, JSN, QUAD FR 5 was advanced vis Fem Vein (right) and placed in the HRA. Placement w as visually 15:40:52 confirmed under fluoroscopy. A CATHETER, JSN, QUAD FR 5 was advanced vis Fem Vein (right) and placed in the RVA. Placement w as visually 15:40:53 confirmed under fluoroscopy. A CATHETER, JSN, QUAD FR 5 was advanced vis Fem Vein (right) and placed in the HIS. Placement w as visually 15:40:54 confirmed under fluoroscopy. 15:46:38 Incremental Atrial Pacing in progress 15:48:52 Incremental Ventricular Pacing in progress. 4 mcg/min ISUPREL given in lab by Anesthesia, SCHOOL BUSINESS MANAGER in Right Antecubital via Peripheral IV. Pump /Drip Flow = 60 ml/hr 15:56:55 using NaCl .9 with a concentration of 1 mg in 250 ml. Ordered by Salas Llamas. 16:01:18 ISUPREL DISCONTINUED 16:02:42 Case End 16:02:49 Catheter(s) removed without difficulty 16:06:01 Sheaths removed; pressure applied to access site. 16:13:08 Sterile dressing applied to site 16:13:09 No case complications noted. 16:13:10 Cine recording checked. 16:13:11 Bedside Report will be given. 16:13:14 DOCU called. Spoke to SHADI 16:13:28 Defibrillator and ground pads removed. Skin intact. 16:17:29 Patient moved to [facility] End Study - Contrast Media Used In Study Contrast Total Opened (mL) Total Used (mL) Total Wasted (mL) Unspecified 0 0 0 End Study - Maximum Contrast Load Max Contrast Load (mL) 579.5 End Study - Radiation Exposure Fluoro Time (minutes) 1.3 End Study - Patient Disposition Complications Transferred To Interventional Outcome No Telemetry Bed successful
[2016-12-14] MEDS ORDERED: METOCLOPRAMIDE HCL 10 MG/2 ML VIAL IV PRN (16:15)
[2016-12-14] MEDS ORDERED: LORazepam 2 MG/ML VIAL IV PRN (16:15)
[2016-12-14] MEDS ORDERED: BACITRACIN OINT 0.9 GM PKT TOP ONE (16:15)
[2016-12-14] MEDS ORDERED: SODIUM CHLOR 0.9% 250 ML INJ 250 ML IV PRN (16:15)
[2016-12-14] MEDS ORDERED: LIDOCAINE HCL 1% 50 ML VIAL INFIL PRN (16:15)
[2016-12-14] MEDS ORDERED: ATROPINE SULFATE 1 MG/ML VIAL IV PRN (16:15)
[2016-12-14] MEDS ORDERED: oxyCODONE/ACETAMINOPHEN 5 MG/325 MG TAB PO PRN (16:15)
[2016-12-14] MEDS ORDERED: ONDANSETRON HCL 4 MG/2 ML VIAL IV PRN (16:15)
--- NOTE | 2016-12-14 16:40 | MA ---
cc: JERSEY DEUTSCH M.D. DATE 12/14/2016 Electrophysiology study, CS cannulation, repeat electrophysiology study on Isuprel infusion. INDICATION Mrs. Gambino is a 71-year-old female with history of symptomatic ventricular tachycardia. Left heart catheterization performed showed diagonal one occlusion, referred for electrophysiology study and possible device insertion. The risks, the nature and the benefit of the procedure were clearly stated to her. The risks include pneumothorax, cardiac perforation, stroke and even . She understood and agreed to proceed. PROCEDURE After written informed consent was obtained, the patient was brought to the EP lab where she was prepped and draped in the usual sterile fashion. Conscious sedation was initiated and maintained throughout the procedure by anesthesiologist. Once sedation verified, the right inguinal area was anesthetized with 2% Xylocaine. Using modified Seldinger technique, the right femoral vein was cannulated on four occasions and four guidewires were advanced. Over the wire three 5 and a 6-Sudanese Hemaquet were advanced. Then under fluoroscopic guidance through the 5 and 6-Sudanese Hemaquet, four 5-Sudanese Neil curved quadripolar electrophysiology catheters were advanced and positioned on the His, upper right atrium, coronary sinus and right ventricular apex. Basic interval was measured and she was slightly prolonged around a 68 milliseconds. Then atrial pacing protocol was performed. Atrial pacing protocol consisted of incremental atrial pacing as well as programmed stimulation with 1400 cycle length and one extra stimuli delivered. No tachyarrhythmia was induced. Then ventricular pacing protocol was performed. There was VA conduction it was concentric. No tachyarrhythmia was induced. Ventricular pacing protocol consisted of incremental ventricular pacing as well as programmed stimulation with 1400 cycle length and up to three extra stimuli delivered. Then atrial pacing protocol was repeated again on Isuprel infusion. No tachyarrhythmia was induced. Post Isuprel no tachyarrhythmia was induced. At that point the procedure was complete. All catheters were removed. The patient going to be transferred to recovery room. No incident to report. The patient tolerated the procedure. Blood loss minimal. ASSESSMENT 1. Electrocardiogram. At baseline the patient was in sinus. Postprocedure electrocardiogram was unchanged. 2. Basic interval. Basic cycle length was around 720 milliseconds, AH at 52 and HV at 66 milliseconds. 3. Atrial pacing protocol. Wenckebach of the node was less than 200 milliseconds. ERP of 600-120 milliseconds. 4. Ventricular pacing protocol. There was VA conduction. It was concentric. No tachyarrhythmia was induced. CONCLUSION Negative electrophysiology study for supraventricular tachyarrhythmia, COMMENT AND RECOMMENDATIONS The patient going to be transferred to the telemetry unit. She will be observed, when stable can be discharged home. MD LISA Hernandez/RUSTY /4:03 PM /4:12 PM
--- NOTE | 2016-12-15 15:02 | EKG ---
Date Performed: 12/14/2016 Time Performed: 13:18:10 PTAGE: 71 years EKG: Sinus rhythm with PVC(s) Left axis deviation RBBB with left anterior fascicular block Abnormal ECG PREVIOUS TRACING : 12/05/2016 07.04 Since previous tracing, no significant change noted DOCTOR: Tonya Nava Interpretating Date/Time 12/15/2016 15:01:19
== END 2016-12-14 18:45 | disposition home or self-care (01) ==
LOC: HDOC 11:54 → HDIC 11:55 → HDOC 18:45
PROVIDERS: ATTEND Internal Medicine Interventional Cardiology
DX: I47.2 Ventricular tachycardia (principal); R55 Syncope and collapse; Z01.818 Encounter for other preprocedural examination; Z01.810 Encounter for preprocedural cardiovascular examination
CPT/HCPCS: 80048; 85025; 85610; 85730; 86850; 86900; 86901; 93005; 93620; 93623; C1730; J1644; J2250; J2405; J3010